=== PATIENT | female | born 1960 | race Caucasian/White ===

== ENCOUNTER 2020-06-01 08:25 | Emergency (ER) | payer MEDICARE ==
[~2020-06-01 08:25] MED LIST: ETODOLAC500 MG PO; MELOXICAM15 MG PO; PERCOCET 7.5/321 TAB PO; TIZANIDINE HCL4 MG PO
[2020-06-01 09:21] LABS: BASOPHIL 0.3 % (0-2); EOSINOPHIL 0.7 % (0-5); HCT 47.4 % (37.0-47.0); HGB 14.9 g/dl (12.5-16.0); LYMPHOCYTE 29.1 % (15-48); MCH 28.9 pg (25.0-31.0); MCHC 31.4 g/dL (32.0-36.0); MONOCYTE 7.3 % (0-12); MPV 10.4 fL (6.0-9.5); NEUTROPHIL 62.3 % (41-80); NRBC 0; PLT 180 K/uL (150-400); RBC 5.15 M/uL (4.20-5.40); RDW 13.7 % (11.5-14.0); WBC 7.5 K/uL (4.0-10.5)
[2020-06-01 09:50] LABS: ALBUMIN 3.6 g/dL (3.4-5.0); BILIRUBIN - TOTAL 0.3 mg/dL (0.2-1.0); BUN/CREAT RATIO (CALC) 11.6 RATIO; C-REACTIVE PROTEIN 0.3 mg/dL (<=0.90); CREATININE 0.95 mg/dL (0.51-0.95); GLOBULIN (CALCULATION) 3.2 g/dL; POTASSIUM 4.1 mmol/L (3.5-5.1); TOTAL PROTEIN 6.8 g/dL (6.4-8.2)
[2020-06-01] MEDS ORDERED: ROBAXIN750 MG PO (10:54)
[2020-06-01] MEDS ORDERED: NORCO 5-325 TA1 EACH PO (10:54)
[2020-10-21] MEDS ORDERED: MEDROL 4MG DOSEP4 MG PO (09:56)
[2020-10-21] MEDS ORDERED: TIZANIDINE HCL4 M1 PO (09:56)
[2020-10-21] MEDS ORDERED: GABAPENTIN300 MG PO (09:56)
== END 2020-06-01 11:06 | disposition home or self-care (01) ==
LOC: FER 08:25
PROVIDERS: Emergency Medicine
DX: M54.5 Low back pain (principal); G89.29 Other chronic pain; R20.2 Paresthesia of skin; Z79.891 Long term (current) use of opiate analgesic; Z98.890 Other specified postprocedural states
CPT/HCPCS: 36415; 72128; 72131; 80053; 84145; 85025; 86140; J1170; J2405